=== PATIENT | male | born 2000 | race African-American/Black ===

== ENCOUNTER 2020-07-12 09:23 | Inpatient (IN) | payer OTHER ==
[~2020-07-12] VITALS: Ht 177.8 cm; Wt 72.7 kg
[~2020-07-12 09:23] MED LIST: ZOFR8TAB24 PO
[2020-07-12 09:52] LABS: HEMATOCRIT 51.2 % (42.0-52.0); HEMOGLOBIN 16.1 g/dl (13.5-17.5); MEAN CORPUSCULAR HEMOGLOBIN 25.9 pg (27.0-33.0); MEAN CORPUSCULAR HGB CONC 31.4 g/dl (32.0-36.5); MEAN CORPUSCULAR VOLUME 82.3 fl (80.0-96.0); PLATELET COUNT, AUTOMATED 259 10^3/uL (150-450); RED BLOOD COUNT 6.22 10^6/uL (4.30-6.10); WHITE BLOOD COUNT 3.8 10^3/uL (4.0-10.0)
[2020-07-12 10:12] LABS: AMPHETAMINES LEVEL URINE NEGATIVE (NEGATIVE); BARBITURATES URINE NEGATIVE (NEGATIVE); BENZODIAZEPINES URINE NEGATIVE (NEGATIVE); CANNABINOIDS URINE NEGATIVE (NEGATIVE); COCAINE METABOLITE URINE NEGATIVE (NEGATIVE); METHADONE URINE NEGATIVE (NEGATIVE); OPIATES URINE NEGATIVE (NEGATIVE); PHENCYCLIDINE URINE NEGATIVE (NEGATIVE)
[2020-07-12 10:28] LABS: ALBUMIN 4.5 GM/DL (3.2-5.2); ALT/SGPT 23 U/L (12-78); BILIRUBIN,DIRECT 0.2 MG/DL (0.0-0.2); BILIRUBIN,TOTAL 0.6 MG/DL (0.2-1.0); BLOOD UREA NITROGEN 11 MG/DL (7-18); CALCIUM LEVEL 9.1 MG/DL (8.5-10.1); CARBON DIOXIDE LEVEL 30 MEQ/L (21-32); CHLORIDE LEVEL 103 MEQ/L (98-107); CREATININE FOR GFR 1.23 MG/DL (0.70-1.30); ETHYL ALCOHOL (ETHANOL) < 0.003 % (0.000-0.010); GLUCOSE, FASTING 89 MG/DL (70-100); POTASSIUM SERUM 3.9 MEQ/L (3.5-5.1); SALICYLATE LEVEL < 1.7 MG/DL (5.0-30.0); SODIUM LEVEL 138 MEQ/L (136-145)
[2020-07-12 10:29] LABS: ACETAMINOPHEN LEVEL < 2.0 UG/ML (10.0-30.0)
[2020-07-12 17:27] LABS: RSV AMPLIFICATION NEGATIVE (NEGATIVE)
[2020-07-12] MEDS ORDERED: ACETAMINOPHEN TAB 650MG DOSE (2X325MG) PO PRN (19:10)
[2020-07-12] MEDS ORDERED: MAALOX 30 ML SUSP *UDC PO PRN (19:10)
[2020-07-12] MEDS ORDERED: MOM 30ML SUSPENSION UDC PO PRN (19:10)
[2020-07-12 22:03] VITALS: BP 106/70
[2020-07-13] MEDS ORDERED: SERTRALINE HCL 25 MG TABLET PO ONE (10:25)
[2020-07-13] MEDS ORDERED: hydrOXYzine 50 MG TAB PO PRN (10:25)
--- NOTE | 2020-07-13 10:25 | MHHPEPDOC ---
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 He had an appointment yesterday. He told staff that he was having suicidal thoughts, he had showed them that he had been cutting himself. He has past trauma from being hazed. When he was first went to [facility], he states that he was stressed but was able to recover. Then sent to [place] in July 2018 and "It got bad after a month of being here" Reports that the Hazing was with him holding the Mortar tube in the air while doing squats and the leaders were belittling him. States that this continued from a little after he got on post to January of 2019. He states that he has continued to have intrusive memories and states that he has chronic suicidal thinking frequently because of the stress in the [employer] including the post traumatic stress. Some of which he won't divulge. 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 Worries about his inability to cope with the stress of being in the [employer] and fears lashing out. 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 While deployed a peace treaty was signed. PT has been for 2 years and he has been together with her since the age of 15 and they have an 11 month old daughter. 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 He had an unstable childhood being raised by mom, aunts and grandmothers and father chose not to be in his life. Last December PT identifies is the first time he experienced SI and that he would push the thoughts away but they continued and he experiences SI frequently. He presented the [facility] in January but he did not share that he had SI and was seen 1x. PT was seen today and he admitted to chronic SI and that last Cade he cut his forearm superficially. PT states he had been thinking about killing himself with a knife since January but when he cut last week he intentionally cut so no one would see it and it was not an attempt. He is unsure if he would do it again "I love my family. I dont want to but the thoughts come". PT is agreeable to being admitted. Psychiatric Review of Systems Depression (2 or more weeks): depressed mood, insomnia/hypersomnia, appetite changes (lost 10 #), psychomotor changes, suicidal thoughts, other (feelings of helplessness) Charlee (4 or more days of): irritable/elevated mood Psychosis: denies PTSD: history of trauma, nightmares and flashbacks, intrusive memories, avoidance of triggers, mood fluctuations Anxiety: situational anxiety, stressor related anxiety Past Psychiatric History Previous Psychiatric Diagnosis: None Previous Psychiatric Admissions: This is first Suicide Attempts: Suicidal gesture with cutting himself last week Psychiatric Follow-up: Patient has had two appointments in the past with [facility], once in January and yesterday Psychiatric medications: None. Past Medical History Head Injury: No Seizures: No Hospitalizations: No Surgeries: Yes (Testicular and Hernia Repair as a ) Family Medical/Psychiatric HX Psychiatric Disorders: Yes (Mother and Aunt with Anxiety) Addiction: No Suicide Attemps/Completions: No Addiction History denies Social History Childhood: Grew up in [place], [place]. He describes his childhood is "very scattered and not stable." States that he has 2 sisters Abuse/Trauma:. 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 07/13/20 Patient reports that he had held back discussion of PTSD symptoms in his initial anjali luation but feels today that he has been suffering from PTSD since he was deployed and that he often has triggers. Current Living Situation: Currently living with his and [id number] daughter. Education: Graduated high school and has had some college. He is hopeful for a Programming Certificate in Coding. Employment: Active duty soldier Stressors: [employer] - Contract is up on August 25, 2021 Social Support: and his mother states that at times he doesn't tell them things Legal: None Marital: . Has been almost 2 years in September 2020 - reports that this relationship is good and that he has a loving relationship with his daughter. Mental Status Examination General Appearance: well groomed, appears stated age, hospital scubs/clothing Build: average Demeanor: average, guarded Eye Contact: average Activity: slowed, anxious Behavior: cooperative Speech: clear, low in volume Mood: depressed, anxious Affect: flat Thought Process: logical/linear Thought Content (Delusions): none reported Thought Content (Other): none reported Thought Content (Aggressive): none reported Perception (Hallucinations): none reported Perception (Other): none reported Cognition (Impairment of): none reported Cognition(Intelligence Est.): above average Oriented: Awake, Alert, Oriented times three Insight: fair Judgment: Fair Psychosis: Denies Diagnoses Major Depressive Disorder, Single Episode, Mild PTSD A-FIB/CHADSVASC A-FIB History Current/History of A-Fib/PAF?: No Current PO Anticoag Therapy: No Assessment This is the first psychiatric admission for this patient who is a 19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 He arrived by EMS and was hospitalized for suicidality. Reports posttraumatic stressors from a time when he was being hazed when he first came to [place]. States that he continues to ruminate about this hazing. . He also reports that much of the stressors is being in the Army states that he cut himself last week he was [facility] any traumatic [facility], but he was rocketed upon. States that he has had fleeting and vague suicidal thoughts prior to February and March of this year. . He states that it getting of the year. His thoughts were more intense and he had not been telling his . Some of his feelings doesn't feel that he can trust the chain of command. He should've reports depressed mood, poor sleep, feelings of irritability, psychomotor changes. States he feels hopeless, having suicidal thoughts, reporting a loss of 10 pounds in the last 2 months. States blood sugar of his depression relates to trauma and intrusive memories that he is occurred while in the [employer] states that he has situational and stress-related anxiety. Patient is well groomed, appears his stated age, is dressed in hospital scrubs, he has several superficial healed lacerations to his left arm and he maintains good eye contact. Patient sits upright. His build is average. Very cooperative and pleasant in the interview at times, very guarded. His activity is average and again he is cooperative and somewhat guarded. Speech is clear, although low in volume. He has a depressed and anxious mood and affect is flat. Thought process is linear and goal oriented. Denies any psychotic symptoms. No current suicidal or homicidal ideation. No auditory or visual hallucinations. He did not observe with any delusional thinking, paranoia, grandiosity, somatic patient's cognition is intact. Memory is intact. Intelligence is above average. He is alert and oriented to person, place, time and situation. His insight is fair to good. Patient to be admitted to psychiatry on a 939 legal status hospital stay 1-3 days and we will discharge when he was stable. He is agreeable to starting Zoloft 25 mg today, titrating to 50 mg tomorrow and hydroxyzine when necessary for anxiety. Patient is also agreeable to individual and group therapies. States that he is hopeful that he'll be discharged this week. Denies current suicidality or homicidality and will be placed on routine observations. Initial Treatment Plan 1. Patient was admitted on a [9.39] status. 2. Complete history was obtained. 3. With patients permission, family will be contacted and database will be expanded. 4. Patients medication regimen will be reviewed and changed accordingly. 5. Patient will be provided with protected environment. 6. Patient will be treated with individual, group, and milieu therapies. 7. Patient will receive supportive psych-education. 8. Discharge planning will commence immediately. 9. Outpatient follow-up treatment will be strongly recommended. 10. The initial treatment plan will focus initially on: * Depression. * Risk for suicide. ESTIMATED LENGTH OF STAY: 1-3 DAYS. TIME SPENT COUNSELING AND COORDINATING INITIAL CARE: 60 minutes. Tobacco Cessation Screen If Patient is a Smoker Patient is not a smoker. N/A-No Antipsychotics Vital Signs Vital Signs Date Time Temp Pulse Resp B/P (MAP) Pulse Ox O2 Delivery O2 Flow Rate FiO2 07/12/20 22:03 97.5 59 16 106/70 (82) 99 Room Air Laboratory Data 24H Labs Laboratory Tests 2 07/12/20 16:33: Coronavirus (COVID-19)(PCR) NEGATIVE, Influenza Type A (RT-PCR) NEGATIVE, Influenza Type B (RT-PCR) NEGATIVE, Respiratory Syncytial Virus (PCR) NEGATIVE Medications No Active Prescriptions or Reported Meds Allergies Coded Allergies: No Known Allergies (Unverified , 01/28/19) MARY JANE MARIN NP July 13, 2020 10:16
[2020-07-13 16:14] VITALS: BP 129/82
--- NOTE | 2020-07-13 16:37 | HPEPDOC ---
General Date of Admission July 12, 2020 at 19:06 Date of Service: July 13, 2020 Chief Complaint The patient is a 19-year-old male admitted with a reason for visit of Depressive Do. History of Present Illness 19 yo M with significant past medical history except recent depressed mood after deployment to [place] who was seen by his [facility] behavioral health provider and recommended for ED evaluation after he reported suicidal ideation evidence of self harm behavior with cutting. ED evaluation was medically unremarkable and he was [facility] to the [facility] where medicine is consulted for medical evaluation. Home Medications No Active Prescriptions or Reported Meds Allergies Coded Allergies: No Known Allergies (Unverified , 01/28/19) Past Medical History Medical History No significant medical history prior to this admission Has been depressed and seeing behavioral health at [facility] A-FIB/CHADSVASC A-FIB History Current/History of A-Fib/PAF?: No Current PO Anticoag Therapy: No Age/Risk Factor Scoring CHADSVASC: CHADSVASC Response (Comments) Value Age Risk Factor Age < 65 years old 0 Gender Risk Factor Male 0 Hx of CHF No 0 Hx of HTN No 0 Hx of Stroke/TIA/or VTE No 0 Hx of Diabetes No 0 Hx of Vascular Disease No 0 Total 0 Treatment Treatment ordered: NONE Reason Anticoagulant not given: Not indicated/[id number] Review of Systems Constitutional: Denies: Chills, Fever, Night Sweats Eyes: Denies: Pain, Vision change ENT: Denies: Head Aches, Ear Pain, Dysphagia Skin: Denies: Rash, Lesions, Breakdown Pulmonary: Denies: Dyspnea, Cough Cardiovascular: Denies: Chest Pain, Palpitations, Orthopnea, Paroxysmal Noc. Dyspnea, Lt Headedness Gastrointestinal: Denies: Nausea, Vomiting, Abdominal Pain, Diarrhea Genitourinary: Denies: Dysuria, Frequency, Incontinence, Retention Hematologic: Denies: Bruising, Bleeding Excessively Endocrine: Denies: Polydipsia, Polyphagia, Polyuria, Heat Intolerance, Cold Intolerance, Other Endocrine Sx Musculoskeletal: Denies: Neck Pain, Back Pain, Joint Pain, Muscle Pain, Spasms Neurological: Denies: Weakness, Numbness, Change in speech, Confusion Psych: Reports: Depression, Thoughts of Self Harm; Denies: Mood Normal, Memory Issues, Anger, Thoughts of Harming Other Physical Examination General Exam: Positive: Alert, No Acute Distress Eye Exam: Negative: PERRLA, Conjunctiva & lids normal, EOMI, Sclera icteric, Ptosis, Other Eye Symptoms ENT Exam: Positive: Atraumatic, Mucous membr. moist/pink, Pharynx Normal Neck Exam: Positive: Supple; Negative: JVD, thyromegaly Chest Exam: Positive: Clear to auscultation, Normal air movement Heart Exam: Positive: Rate Normal, Regular Rhythm, Normal S1, Normal S2; Negative: Murmurs, Rubs Abdomen Exam: Positive: Normal bowel sounds, Soft; Negative: Tenderness, Hepatospenomegaly Extremity Exam: Positive: Normal pulses; Negative: Clubbing, Cyanosis, Edema Skin Exam: Positive: Nl turgor and temperature, Lesion (has bilateral medial lower arm lópez of self harm lópez, no bleeding, healed); Negative: Breakdown Neuro Exam: Positive: Normal Gait, Normal Speech, Strength at 5/5 X4 ext, Normal Tone, Sensation Intact, Cranial Nerves 3-12 NL, Reflexes 2+ Psych Exam: Positive: Memory Intact, Oriented x 3; Negative: Mood NL (depressed mood), Anxiety Vital Signs Vital Signs Date Time Temp Pulse Resp B/P (MAP) Pulse Ox O2 Delivery O2 Flow Rate FiO2 07/13/20 14:57 Room Air 07/12/20 22:03 97.5 59 16 106/70 (82) 99 Laboratory Data Labs 24H Laboratory Tests 2 07/12/20 16:33: Coronavirus (COVID-19)(PCR) NEGATIVE, Influenza Type A (RT-PCR) NEGATIVE, Influenza Type B (RT-PCR) NEGATIVE, Respiratory Syncytial Virus (PCR) NEGATIVE Assessment/Plan 19 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 Depressed with self harm behavior i/s/o recent exposure to occupational traumatic events: -plan per psychiatry He has no other medical problems that were identified or reported at this time. Medicine will sign off. Please re-consult if medical concerns arise. Plan / VTE VTE Prophylaxis Ordered?: No VTE Exclusion Mechanical Proph: Low Risk for VTE VTE Exclusion Pharmacological: At Low Risk for VTE PENNY RAWLS MD July 13, 2020 16:37
[2020-07-13] MEDS: traZODone 50 MG TAB PO PRN (23:35)
[2020-07-14 06:52] VITALS: BP 113/63
[2020-07-14] MEDS: SERTRALINE HCL 50 MG TAB PO SCH (08:06)
--- NOTE | 2020-07-14 10:39 | MHIPNPDOC ---
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 He had an appointment yesterday. He told staff that he was having suicidal thoughts, he had showed them that he had been cutting himself. He has past trauma from being hazed. When he was first went to [facility], he states that he was stressed but was able to recover. Then sent to [place] in July 2018 and "It got bad after a month of being here." Reports that the Hazing was with him holding the Mortar tube in the air while doing squats and the leaders were belittling him. States that thi s continued from a little after he got on post to January of 2019. He states that he has continued to have intrusive memories and states that he has chronic suicidal thinking frequently because of the stress in the [employer] including the post-traumatic stress. Some of which he won't divulge. 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 Worries about his inability to cope with the stress of being in the [employer] and fears lashing out. 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 While deployed a peace treaty was signed. PT has been for 2 years and he has been together with her since the age of 15 and they have an 11 month old daughter. 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 He had an unstable childhood being raised by mom, aunts and grandmothers and father chose not to be in his life. Last December PT identifies is the first time he experienced SI and that he would push the thoughts away but they continued and he experiences SI frequently. He presented the [facility] in January but he did not share that he had SI and was seen 1x. PT was seen today and he admitted to chronic SI and that last Sunday he cut his forearm superficially. PT states he had been thinking about killing himself with a knife since January but when he cut last week he intentionally cut so no one would see it and it was not an attempt. He is unsure if he would do it again "I love my family. I dont want to but the thoughts come". PT is agreeable to being admitted. VITAL SIGNS: See below. CURRENT MEDICATIONS: See below. 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 Denies suicidal/ho micidal ideation, planning or intent. Abstract reasoning, and computation: fair Description of associations: denies, none observed Description of abnormal or psychotic thoughts: denies, none observed. Judgment: fair Insight: fair Orientation: alert and oriented to person, place, time and situation Recent and remote memory: intact Attention span and concentration: good Language: expansive Fund of knowledge: average Mood: Depressed Mood Affect: Congruent with mood/flat DIAGNOSES: Major Depressive Disorder, Single Episode, Mild PTSD ASSESSMENT: Patient reports that he is feeling "better" States that after he was seen by Hospitalist and this provider that he had an epiphany. States that the depression is not about the Hazing but due to the experiences that he had while deployed in [place]. States that he is embarrassed by these feelings. He reports that many of his peers in the [employer] "want to be killers, I just am different I guess, I don't want to kill people." He states that he has triggers and will find himself cowering in the bathroom shower because of his intrusive memories. Reports that he had been suppressing these feelings for a long time. He wants to continue therapy [facility]. He denies suicidal ideation, reports that his depression is lifting and that he wants to return home to be with his family. MANAGEMENT PLAN: Continue medications as ordered, discharge tomorrow. TIME SPENT: 25 minutes. Vital Signs Vital Signs Date Time Temp Pulse Resp B/P (MAP) Pulse Ox O2 Delivery O2 Flow Rate FiO2 07/14/20 06:52 99.1 69 18 113/63 (80) 98 Room Air Current Medications Current Medications Medications (Trade) Dose Ordered Sig/[place]ora Route PRN Reason Start Time Stop Time Status Last Admin Dose Admin Acetaminophen (Tylenol Tab) 650 mg Q6HP PRN PO HEADACHE or DISCOMFORT 07/12/20 19:10 Al Hydrox/Mg Hydrox/Simethicone (Mylanta) 30 ml Q4HP PRN PO HEARTBURN/INDIGESTION 07/12/20 19:10 Hydroxyzine HCl (Atarax) 50 mg Q6HP PRN PO ANXIETY 07/13/20 10:25 Magnesium Hydroxide (Milk Of Magnesia) 30 ml DAILYPRN PRN PO CONSTIPATION 07/12/20 19:10 Sertraline HCl (Zoloft) 50 mg DAILY PO 07/14/20 09:00 07/14/20 08:06 Trazodone HCl (Desyrel) 50 mg QHSP PRN PO INSOMNIA 07/12/20 19:10 07/13/20 23:35 Allergies Coded Allergies: No Known Allergies (Unverified , 01/28/19) MARY JANE MARIN NP July 14, 2020 10:39
[2020-07-14] MEDS ORDERED: SERT50TA29 PO (10:43)
[2020-07-14] MEDS ORDERED: HYDR50TA70 PO (10:43)
[2020-07-14 16:22] VITALS: BP 130/77
[2020-07-14] MEDS: traZODone 50 MG TAB PO PRN (22:16)
[2020-07-15 06:23] VITALS: BP 137/71
[2020-07-15 08:34] LABS: CHOLESTEROL RISK RATIO 2.823 (<5)
[2020-07-15] MEDS: SERTRALINE HCL 50 MG TAB PO SCH (08:38)
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
== END 2020-07-15 11:08 | disposition home or self-care (01) | DRG 885 ==
LOC: M ED 09:23 → M ED INP 19:06 → M PSY 21:46
PROVIDERS: ADMIT Psychiatry & Neurology Psychiatry; ATTEND Psychiatry & Neurology Psychiatry
DX: F32.0 Major depressive disorder, single episode, mild (principal); F43.10 Post-traumatic stress disorder, unspecified